=== PATIENT | male | born 1935 | race Two or more races ===

== ENCOUNTER 2018-01-17 12:32 | Emergency (ER) | payer OTHER ==
[~2018-01-17] VITALS: Ht 172.7 cm; Wt 81.6 kg
[2018-01-17 12:35] VITALS: Ht 172.7 cm; Wt 81.6 kg
[2018-01-17 13:28] LABS: BASOPHIL % 0.3 % (0-2); PLATELET COUNT 196 x10^3mcL (130-400); RED CELL DISTRIBUTION WIDTH 14.1 % (11.5-14.5)
[2018-01-17 13:34] LABS: CALCIUM 8.7 mg/dL (8.5-10.1); CARBON DIOXIDE 26.4 mmol/L (21-32); CHLORIDE SERUM 106 mmol/L (98-107); CREATININE SERUM 1.3 mg/dL (0.7-1.3); GLUCOSE SERUM 201 mg/dL (74-106); POTASSIUM SERUM 4.9 mmol/L (3.5-5.1); SODIUM SERUM 141 mmol/L (136-145)
[2018-01-17 13:38] LABS: ALBUMIN 3.4 g/dL (3.4-5.0); ALKALINE PHOSPHATASE 79 U/L (46-116); ALT/SGPT 40 U/L (16-63); AMYLASE 43 U/L (25-115); AST/SGOT 23 U/L (15-37); BILIRUBIN TOTAL 0.69 mg/dL (0.20-1.00); CHOLESTEROL 113 mg/dL (<200); HDL CHOLESTEROL 58 mg/dL (40-60); LIPASE 83 IU/L (73-393); TOTAL PROTEIN, SERUM 6.4 g/dL (6.4-8.2)
[2018-01-17 14:59] LABS: UA SPECIFIC GRAVITY 1.025 (1.005-1.035); microscopic required? YES; urine erythrocyte 1+ (NEGATIVE)
[2018-01-17 15:10] VITALS: BP 168/92
[2018-01-17 15:40] LABS: AMPHETAMINE QUAL UR NONE DETECTED (NEG <=1000)
== END 2018-01-17 15:10 | disposition home or self-care (01) ==
LOC: ED 12:32
PROVIDERS: Emergency Medicine
DX: S01.01XA Laceration without foreign body of scalp, initial encounter (principal); R55 Syncope and collapse; E11.65 Type 2 diabetes mellitus with hyperglycemia; I45.10 Unspecified right bundle-branch block; I44.0 Atrioventricular block, first degree; I10 Essential (primary) hypertension; W18.30XA Fall on same level, unspecified, initial encounter; Y92.39 Other specified sports and athletic area as the place of occurrence of the external cause; Y99.8 Other external cause status
CPT/HCPCS: 82962; 83880; J1815; J2001; J7030; Q0092